=== PATIENT | male | born 1980 | race Caucasian/White ===

== ENCOUNTER 2018-03-10 19:06 | Emergency (ER) | payer OTHER ==
[2018-03-10 21:45] VITALS: BP 133/71
== END 2018-03-10 21:45 | disposition home or self-care (01) ==
LOC: ED 19:06
DX: S01.91XA Laceration without foreign body of unspecified part of head, initial encounter (principal); W20.8XXA Other cause of strike by thrown, projected or falling object, initial encounter; Y93.89 Activity, other specified; Y92.89 Other specified places as the place of occurrence of the external cause; Y99.8 Other external cause status
CPT/HCPCS: 90715; J2001

== ENCOUNTER 2018-03-15 16:05 | Emergency (ER) | payer OTHER ==
[~2018-03-15] VITALS: Ht 170.2 cm; Wt 80.3 kg
[2018-03-15 16:09] VITALS: BP 136/83; Ht 170.2 cm; Wt 80.3 kg
== END 2018-03-15 16:30 | disposition home or self-care (01) ==
LOC: ED 16:05
DX: S01.01XD Laceration without foreign body of scalp, subsequent encounter (principal); W20.8XXD Other cause of strike by thrown, projected or falling object, subsequent encounter
CPT/HCPCS: J7030

== ENCOUNTER 2018-03-19 17:49 | Emergency (ER) | payer OTHER ==
[2018-03-19 17:54] VITALS: BP 117/74; Ht 170.2 cm
== END 2018-03-19 18:41 | disposition home or self-care (01) ==
LOC: ED 17:49
DX: S01.01XD Laceration without foreign body of scalp, subsequent encounter (principal); Z98.890 Other specified postprocedural states; X58.XXXD Exposure to other specified factors, subsequent encounter

== ENCOUNTER 2018-11-09 22:51 | Emergency (ER) | payer OTHER ==
[~2018-11-09] VITALS: Ht 170.2 cm; Wt 82.6 kg
[2018-11-09 23:09] VITALS: Ht 170.2 cm; Wt 82.6 kg
[2018-11-10 02:04] VITALS: BP 127/90
== END 2018-11-10 02:04 | disposition home or self-care (01) ==
LOC: ED 22:51
DX: S61.011A Laceration without foreign body of right thumb without damage to nail, initial encounter (principal); Z98.890 Other specified postprocedural states; W45.8XXA Other foreign body or object entering through skin, initial encounter; Y93.89 Activity, other specified; Y92.89 Other specified places as the place of occurrence of the external cause; Y99.8 Other external cause status
CPT/HCPCS: J2001